=== PATIENT | male | born 1940 | race Caucasian/White ===

== ENCOUNTER 2017-03-12 15:46 | Emergency (ER) | payer OTHER ==
[~2017-03-12] VITALS: Ht 172.7 cm; Wt 95.3 kg
[2017-03-12] MEDS ORDERED: IV NORMAL SALINE 1000ML BAG 1,000 ML IV SCH (15:59)
[2017-03-12] MEDS ORDERED: KETOROLAC TROMETHAMINE 30 MG/ML INJ. IV ONE (16:00)
[2017-03-12] MEDS ORDERED: ONDANSETRON PF 4 MG/2 ML VIAL. IV ONE (16:00)
[2017-03-12] MEDS ORDERED: 0.9 % SODIUM CHLORIDE 10 ML DISP.SYRIN. IV PRN (16:00)
[2017-03-12 16:10] LABS: BASO % 1 % (0-3); BILIRUBIN,URINE NEGATIVE (NEG); EOS % 3 % (0-3); GLUCOSE,URINE NEGATIVE (NEG); HEMATOCRIT 51.4 % (39.0-53.0); HEMOGLOBIN 17.2 g/dL (13.0-17.5); LYMPH # 2.4 x10^3/uL (1.0-4.8); LYMPH % 34 % (24-48); MEAN CORPUSCULAR HEMOGLOBIN 31 pg (25-35); MEAN CORPUSCULAR HGB CONC 34 g/dL (31-37); MEAN CORPUSCULAR VOLUME 91 fL (79-100); MONO % 10 % (0-9); NEUT % 53 % (31-73); NITRITE,URINE NEGATIVE (NEG); PLATELET COUNT 177 x10^3/uL (140-400); PROTEIN,URINE NEGATIVE (NEG-TRACE); RED BLOOD COUNT 5.64 x10^6/uL (4.30-5.70); RED CELL DISTRIBUTION WIDTH 13.5 % (11.5-14.5); UROBILINOGEN,URINE 0.2 mg/dL (0.2 mg/dL); WHITE BLOOD COUNT 7.1 x10^3/uL (4.0-11.0)
--- NOTE | 2017-03-12 16:15 | PHYS DOC ---
Past Medical History Past Medical History: CAD, Hypertension, Kidney Stone Past Surgical History: Knee Replacement, TURP Additional Past Surgical Histo: umbilical hernia surgery Adult General Chief Complaint Chief Complaint: FLANK PAIN HPI HPI Patient is a pleasant 76-year-old male with a history of kidney stones, hypertension, prior umbilical hernia, prior paroxysmal age of regulation presents with flank pain that began 3 days ago. Originally he thought he pulled a muscle while at work but the pain as got progressively worse over the right flank with radiation to the right lower quadrant. Described as achy and throbbing without clear resolution. Patient describes waves of pain with nausea without vomiting. Patient denies any direct trauma denies any reproducible pain certain movements. Denies UTI symptoms hematuria or inability to urinate. Patient does describe history of kidney sounds much like this in the past. The reason he came in today's cousin nausea without vomiting Jarrod progressively worse. He denies no chest pain shortness of breath, recent URI symptoms, recent rashes on her skin, fevers, chills, diarrhea or other symptoms. He is allergic to aspirin and doesn't like to use Motrin secondary to his irritation of his stomach. Pain presently is an 8 of 10 Review of Systems Review of Systems Constitutional: Denies fever or chills [] Eyes: Denies change in visual acuity, redness, or eye pain [] HENT: Denies nasal congestion or sore throat [] Respiratory: Denies cough or shortness of breath [] Cardiovascular: No additional information not addressed in HPI [] GI: Abdominal pain, nausea without diarrhea : Denies dysuria or hematuria [] Musculoskeletal back pain chronically [] Integument: Denies rash or skin lesions [] Neurologic: Denies headache, focal weakness or sensory changes [] Endocrine: Denies polyuria or polydipsia [] Current Medications Current Medications Current Medications Medications (Trade) Dose Ordered Sig/Chaparrita Start Time Stop Time Status Last Admin Dose Admin Fentanyl Citrate (Fentanyl 2ml Vial) 50 mcg PRN Q15MIN PRN 03/12/17 16:00 03/13/17 15:59 03/12/17 16:59 50 MCG Ketorolac Tromethamine (Toradol) 30 mg 1X ONCE 03/12/17 16:00 03/12/17 16:05 DC 03/12/17 16:18 30 MG Ondansetron HCl (Zofran) 4 mg 1X ONCE 03/12/17 16:00 03/12/17 16:05 DC 03/12/17 16:15 4 MG Sodium Chloride (Normal Saline Flush) 10 ml QSHIFT PRN 03/12/17 16:00 Allergies Allergies Allergies Coded Allergies Type Severity Reaction Last Updated Verified metaproterenol Allergy Unknown ? 03/12/17 Yes aspirin Adverse Reaction Unknown abd pain 03/12/17 Yes Physical Exam Physical Exam Constitutional: Well developed, well nourished, patient is mildly diaphoretic and uncomfortable nontoxic in appearance HENT: Normocephalic, atraumatic, bilateral external ears normal, oropharynx moist, Eyes: PERRLA, EOMI, conjunctiva normal, no discharge. [] Neck: Normal range of motion, no tenderness, supple, no stridor. [] Cardiovascular:Heart rate regular rhythm, no murmur [] Lungs & Thorax: Bilateral breath sounds clear to auscultation [] Abdomen: Bowel sounds normal, soft, no tenderness, no masses, no pulsatile masses. [] Skin: Warm, dry, no erythema, no rash. [] Back: No tenderness, no CVA tenderness. [] Extremities: No tenderness, no cyanosis, no clubbing, ROM intact, no edema. [] Neurologic: Alert and oriented X 3, normal motor function, normal sensory function, no focal deficits noted. [] Psychologic: Affect normal, judgement normal, mood normal. [] Current Patient Data Vital Signs Vital Signs Date Time Temp Pulse Resp B/P (MAP) Pulse Ox O2 Delivery O2 Flow Rate FiO2 03/12/17 16:59 14 96 Room Air 03/12/17 16:42 88 175/89 (117) 03/12/17 15:55 97.9 97.9 Lab Values Laboratory Tests Test 03/12/17 16:00 White Blood Count 7.1 x10^3/uL (4.0-11.0) Red Blood Count 5.64 x10^6/uL (4.30-5.70) Hemoglobin 17.2 g/dL (13.0-17.5) Hematocrit 51.4 % (39.0-53.0) Mean Corpuscular Volume 91 fL (79-100) Mean Corpuscular Hemoglobin 31 pg (25-35) Mean Corpuscular Hemoglobin Concent 34 g/dL (31-37) Red Cell Distribution Width 13.5 % (11.5-14.5) Platelet Count 177 x10^3/uL (140-400) Neutrophils (%) (Auto) 53 % (31-73) Lymphocytes (%) (Auto) 34 % (24-48) Monocytes (%) (Auto) 10 % (0-9) H Eosinophils (%) (Auto) 3 % (0-3) Basophils (%) (Auto) 1 % (0-3) Neutrophils # (Auto) 3.8 x10^3uL (1.8-7.7) Lymphocytes # (Auto) 2.4 x10^3/uL (1.0-4.8) Monocytes # (Auto) 0.7 x10^3/uL (0.0-1.1) Eosinophils # (Auto) 0.2 x10^3/uL (0.0-0.7) Basophils # (Auto) 0.0 x10^3/uL (0.0-0.2) Urine Collection Type Unknown Urine Color Yellow Urine Clarity Clear Urine pH 6.0 Urine Specific Arab 1.015 Urine Protein Negative mg/dL (NEG-TRACE) Urine Glucose (UA) Negative mg/dL (NEG) Urine Ketones (Stick) Negative mg/dL (NEG) Urine Blood Negative (NEG) Urine Nitrite Negative (NEG) Urine Bilirubin Negative (NEG) Urine Urobilinogen Dipstick 0.2 mg/dL (0.2 mg/dL) Urine Leukocyte Esterase Negative (NEG) Urine RBC 0 /HPF (0-2) Urine WBC Occ /HPF (0-4) Urine Squamous Epithelial Cells Few /LPF Urine Bacteria 0 /HPF (0-FEW) Urine Mucus Slight /LPF Sodium Level 137 mmol/L (136-145) Potassium Level 4.1 mmol/L (3.5-5.1) Chloride Level 101 mmol/L (98-107) Carbon Dioxide Level 26 mmol/L (21-32) Anion Gap 10 (6-14) Blood Urea Nitrogen 17 mg/dL (8-26) Creatinine 1.1 mg/dL (0.7-1.3) Estimated GFR (Cockcroft-Gault) 65.4 BUN/Creatinine Ratio 15 (6-20) Glucose Level 106 mg/dL (70-99) H Calcium Level 9.3 mg/dL (8.5-10.1) Total Bilirubin 0.6 mg/dL (0.2-1.0) Aspartate Amino Transferase (AST) 25 U/L (15-37) Alanine Aminotransferase (ALT) 26 U/L (16-63) Alkaline Phosphatase 61 U/L (46-116) Creatine Kinase 153 U/L (39-308) Creatine Kinase MB (Mass) 2.9 ng/mL (0.0-3.6) Creatine Kinase MB Relative Index 1.9 % (0-4) Troponin I Quantitative < 0.017 ng/mL (0.000-0.055) Total Protein 7.4 g/dL (6.4-8.2) Albumin 4.0 g/dL (3.4-5.0) Albumin/Globulin Ratio 1.2 (1.0-1.7) Lipase 151 U/L (73-393) Laboratory Tests 03/12/17 16:00 Laboratory Tests 03/12/17 16:00 EKG EKG [] EKG timed 1614 date 03/12/[address] Felder heart rate 67 DC increased to 206 deficits. Mild first-degree AV block QRS is normal with QTC is within normal limits. No ST segment T-wave changes consistent with acute coronary ischemia. Radiology/Procedures Radiology/Procedures [] Course & Med Decision Making Course & Med Decision Making Pertinent Labs and Imaging studies reviewed. (See chart for details) U nursing notes, vital signs as well as laboratory work. Urinalysis is clear with exception. White blood cell count red blood cells noted no bacteria. Kidney functions normal. BUNs 17 and creatinine 1.1 Reassessment pain has improved from 9 of 10-6. With a single dose of fentanyl this patient's nausea is also improved. []: 1940 LOCATION: ER AGE: 76 SEX: M EXAM STATUS: REG ER ORD. PHYSICIAN: SHABANA FELDER MD REASON: right flank pain PROCEDURE: CT ABDOMEN PELVIS WO CONTRAST Indication: Right flank pain for 4 days. Technique: Axial images and coronal and sagittal reformatted images are provided. No comparison is available. One or more of the following individualized dose reduction techniques were utilized for this examination: 1. Automated exposure control 2. Adjustment of the mA and/or kV according to patient size 3. Use of iterative reconstruction technique Findings: There is atelectasis or scarring in the lung bases. There is no pleural effusion. Heart is not enlarged. Coronary artery calcifications are noted. Solid organ evaluation is limited without contrast. There is fatty infiltration of the liver. Gallbladder is unremarkable. Spleen is not enlarged. Pancreas and adrenals are unremarkable. Nonobstructing renal calculi bilaterally are noted, one stone on the right measuring 3 mm and several stones on the left up to 4 mm in size. Probable cysts are noted bilaterally, largest lower pole right kidney measures 5 cm. There is no obstructing renal calculus. There is atheromatous disease in the abdominal aorta without aneurysm. Lack of IV or oral contrast limits evaluation of bowel. There is a small hiatal hernia. There is no bowel obstruction or mural thickening. There is probably a small duodenal diverticulum. There are a few diverticula in the colon without findings of diverticulitis. Normal appendix is visualized. Bladder is without calculus. Prostate calcifications are off midline. There is no free pelvic fluid or pelvic adenopathy. There are degenerative changes in the spine. Impression: Nonobstructing renal calculi bilaterally. No obstructing calculus. DICTATED and SIGNED BY: BRYANT YORK MD DATE: 03/12/17 8184 CC: SHABANA FELDER MD; RICH RITCHIE Discussed the results of the CT scan laboratory work and care with the patient and his . Differential diagnosis includes diverticulitis, small bowel section, cholecystitis, cholelithiasis, appendicitis, ruptured AAA aneurysm, kidney stone, UTI, pyonephritis, compression fracture lumbar spine, rib fracture , chest wall contusion, herpes zoster,. His pain is improved with IV medications fluids and antiemetics. Discussed differential diagnosis and follow-up instructions with his . This pointed no questions. Impression: Abdominal pain of unclear etiology, nausea without vomiting. Disposition: Oral analgesics, antiemetics, PCP follow-up in 12-24 hours repeat abdominal exam. Discussed with family appendix is a continuum of disease and need for follow-up. Dragon Disclaimer Dragon Disclaimer This electronic medical record was generated, in whole or in part, using a voice recognition dictation system. Departure Departure Impression: Primary Impression: Nausea Additional Impression: Abdominal pain Disposition: HOME, SELF-CARE Condition: GOOD Patient Instructions: Abdominal Pain (Nonspecific), Nausea, Adult Additional Instructions: This follow-up with her primary care doctor in the next 12-24 hours for repeat, exam to ensure that appendicitis is not developing. There is no evidence of kidney stones but cautious symptoms at this time. There are some kidney stones inside her kidney the past causing symptoms cell provide you symptomatically treatment until you are seen by her provider. Please return for any new or increased symptoms, vomiting with blood in your emesis or blood in your stool. I would also advise you to follow up with her regular doctor for routine evaluations. Problem Qualifiers SHABANA FELDER MD March 12, 2017 16:15
[2017-03-12] MEDS: fentaNYL PF VIAL 100 MCG/2 ML VIAL IV PRN ×2 (16:17→16:59)
[2017-03-12 16:20] LABS: CALCIUM 9.3 mg/dL (8.5-10.1); CREATININE 1.1 mg/dL (0.7-1.3); GFR 65.4; POTASSIUM 4.1 mmol/L (3.5-5.1)
[2017-03-12 16:26] LABS: ALBUMIN/GLOBULIN RATIO 1.2 (1.0-1.7); TOTAL BILIRUBIN 0.6 mg/dL (0.2-1.0); TOTAL PROTEIN 7.4 g/dL (6.4-8.2)
[2017-03-12 16:27] LABS: BACTERIA,URINE 0 /HPF (0-FEW); RBC,URINE 0 /HPF (0-2); SQUAMOUS EPITHELIAL CELL,UR FEW /LPF; WBC,URINE OCC /HPF (0-4)
[2017-03-12 16:34] LABS: CKMB MASS 2.9 ng/mL (0.0-3.6)
--- NOTE | 2017-03-12 16:52 | RAD ---
Indication: Right flank pain for 4 days. Technique: Axial images and coronal and sagittal reformatted images are provided. No comparison is available. One or more of the following individualized dose reduction techniques were utilized for this examination: 1. Automated exposure control 2. Adjustment of the mA and/or kV according to patient size 3. Use of iterative reconstruction technique Findings: There is atelectasis or scarring in the lung bases. There is no pleural effusion. Heart is not enlarged. Coronary artery calcifications are noted. Solid organ evaluation is limited without contrast. There is fatty infiltration of the liver. Gallbladder is unremarkable. Spleen is not enlarged. Pancreas and adrenals are unremarkable. Nonobstructing renal calculi bilaterally are noted, one stone on the right measuring 3 mm and several stones on the left up to 4 mm in size. Probable cysts are noted bilaterally, largest lower pole right kidney measures 5 cm. There is no obstructing renal calculus. There is atheromatous disease in the abdominal aorta without aneurysm. Lack of IV or oral contrast limits evaluation of bowel. There is a small hiatal hernia. There is no bowel obstruction or mural thickening. There is probably a small duodenal diverticulum. There are a few diverticula in the colon without findings of diverticulitis. Normal appendix is visualized. Bladder is without calculus. Prostate calcifications are off midline. There is no free pelvic fluid or pelvic adenopathy. There are degenerative changes in the spine. Impression: Nonobstructing renal calculi bilaterally. No obstructing calculus.
[2017-03-12] MEDS ORDERED: ONDA4TAB10 PO (17:39)
[2017-03-12] MEDS ORDERED: HYDR-2666 PO (17:39)
[2017-03-12 17:49] VITALS: BP 140/74
--- NOTE | 2017-03-13 12:01 | EKG ---
[facility] [address] [place] [address] Test Date: 2017-03-12 Test Time: 16:14:55 Pat Name: VELMA HARRISON Department: Room: Gender: M Stock Controller: : 1940 Requested By: SHABANA FELDER Order Number: [id number] Reading MD: Lolly Rubin Measurements Intervals [place] Rate: 67 P: 42 GA: 206 QRS: -18 QRSD: 92 T: 48 QT: 378 QTc: 402 Interpretive Statements SINUS RHYTHM LEFTWARD AXIS OTHERWISE NORMAL ECG RI6.01 Unconfirmed report No previous ECG available for comparison Electronically Signed On 03-14-2017 21:32:31 CDT by Lolly Rubin
== END 2017-03-12 17:51 | disposition home or self-care (01) ==
LOC: ER 16:50
DX: R11.0 Nausea (principal); R10.9 Unspecified abdominal pain; R61 Generalized hyperhidrosis; I10 Essential (primary) hypertension; I25.10 Atherosclerotic heart disease of native coronary artery without angina pectoris; Z88.6 Allergy status to analgesic agent; Z88.8 Allergy status to other drugs, medicaments and biological substances; Z87.442 Personal history of urinary calculi
CPT/HCPCS: 36415; 74176; 80053; 81001; 82553; 83690; 84484; 85027; 93005; 96361; 96374; 96375; 96376; 99285; J1885; J2405; J3010; J7030

== ENCOUNTER → 2020-04-20 | Outpatient (CLI) | payer OTHER ==
[~2020-04-20] MED LIST: HYDR-2761 PO; ONDA4TAB10 PO
--- NOTE | 2020-04-20 14:18 | CARD ---
MR#: [id number] Date of Study: 04/20/2020 Ordering Physician: LINDA ANDERSON, Referring Physician: LINDA ANDERSON, Tech: APPROVED REPORT EXAM: Two-dimensional and M-mode echocardiogram with Doppler and color Doppler. Other Information Quality : Good INDICATION Hypertension/HCVD 2D DIMENSIONS RVDd3.1 (2.9-3.5cm)Left Atrium(2D)3.3 (1.6-4.0cm) IVSd0.9 (0.7-1.1cm)Aortic Root(2D)2.9 (2.0-3.7cm) LVDd4.6 (3.9-5.9cm)LVOT Diameter2.2 (1.8-2.4cm) PWd0.9 (0.7-1.1cm)LVDs3.3 (2.5-4.0cm) FS (%) 28.6 %SV54.2 ml LVEF(%)55.2 (>50%) Aortic Valve AoV Peak Kurtis.142.2cm/sAoV VTI24.3cm AO Peak GR.8.1mmHgLVOT Peak Kurtis.118.8cm/s AO Mean GR.4mmHgAVA (VMAX)3.12cm2 CARRIE (VTI)3.60cm2 Mitral Valve MV E Pbbqrrhp317.4cm/sMV DECEL [id number] MV A Gwlaiwzd91.4cm/sE/A Ratio1.1 Tricuspid Valve TR P. Jbqfvxkv265xv/sRAP GBNWLBHM0wyRz TR Peak Gr.84nfXwNUJQ95txMe Pulmonary Vein S1 Jjuzhqvn57.2cm/sD2 Ilmjarfr20.7cm/s LEFT VENTRICLE The left ventricle is normal size. There is mild concentric left ventricular hypertrophy. The left ve ntricular systolic function is normal. The Ejection Fraction is 55-60%. There is normal LV segmental wall motion. RIGHT VENTRICLE The right ventricle is normal size. The right ventricular systolic function is normal. ATRIA The left atrium size is normal. The right atrium size is normal. The interatrial septum is intact wit h no evidence for an atrial septal defect or patent foramen ovale as noted on 2-D or Doppler imaging. AORTIC VALVE The aortic valve is calcified but opens well. Doppler and Color Flow revealed no significant aortic r egurgitation. There is no significant aortic valvular stenosis. MITRAL VALVE The mitral valve is calcified but opens well. Mitral annular calcification is mild. There is no evide nce of mitral valve prolapse. There is no mitral valve stenosis. Doppler and Color-flow revealed trac e mitral regurgitation. TRICUSPID VALVE The tricuspid valve is normal in structure and function. Doppler and Color Flow revealed mild tricusp id regurgitation. The PA pressure was estimated at 56 mmHg. There is no tricuspid valve stenosis. PULMONIC VALVE The pulmonic valve is not well visualized. Doppler and Color Flow revealed no pulmonic valvular regur gitation. There is no pulmonic valvular stenosis. GREAT VESSELS The aortic root is normal in size. The ascending aorta is not well seen. The IVC is normal in size an d collapses >50% with inspiration. PERICARDIAL EFFUSION There is no evidence of significant pericardial effusion. Critical Notification Critical Value: No <Conclusion> The left ventricle is normal size. The left ventricular systolic function is normal. The Ejection Fraction is 55-60%. There is normal LV segmental wall motion. There is mild concentric left ventricular hypertrophy. Doppler and Color Flow revealed no significant aortic regurgitation. There is no significant aortic valvular stenosis. Doppler and Color-flow revealed trace mitral regurgitation. Doppler and Color Flow revealed mild tricuspid regurgitation. The PA pressure was estimated at 56 mmHg. Signed by : Juvenal Ye MD Electronically Approved : 04/20/2020 14:18:29
== END | disposition home or self-care (01) ==
LOC: ECHO 10:12
PROVIDERS: ATTEND Internal Medicine Cardiovascular Disease
DX: I08.3 Combined rheumatic disorders of mitral, aortic and tricuspid valves (principal); I10 Essential (primary) hypertension
CPT/HCPCS: 93306

== ENCOUNTER → 2020-04-29 | Outpatient (CLI) | payer OTHER ==
[~2020-04-29] MED LIST changes: +REGADENOSON 0.4 MG/5 ML DISP.SYRIN. IV ONE
--- NOTE | 2020-04-29 17:53 | RAD ---
MR#: [id number] Date of Study: 04/29/2020 Ordering Physician: LINDA MONGE, Referring Physician: KARI MCNEAL Tech: RT Sebastián (R) (N) APPROVED REPORT Test Type: Pharmacological Stress Nurse/Tech: Minevra Vidal RN Test Indications: CAD, Pre-op for hip surgery Cardiac History: Hypertension, High cholesterol, NE with 1 stent Medications: See Electronic Medical Record Medical History: See Electronic Medical Record Resting ECG: SB Resting Heart Rate: 53 bpm Resting Blood Pressure: 132/66mmHg Pretest Chest Pain: No chest pain Nurse/Tech Notes S1S2, Lungs CTA Consent: The procedure was explained to the patient in lay terms. Informed consent was witnessed. Neymar eout was entered into [employer]. History and Stress Test performed by RT Juancho (R) (N) Pharm. Details Pharmacologic stress testing was performed using 0.4mg per 5ml of regadenoson given intravenously ove r 7-10 seconds. Stress Symptoms Dyspnea, Chest pain 3/10. Resolved by the end of stress test. POST EXERCISE Reason for Termination: Infusion complete Max HR: 120 bpm Max Blood Pressure: 154/73mmHg Blood Pressure response to exercise: Normal blood pressure response during stress. Heart Rate response to exercise: WNL Chest Pain: Yes. 3/10 resolved by end of test. Arrhythmia: No. ST Change: No. INTERPRETATION Stress EKG Conclusion: No evidence of stress induced EKG changes. Imaging Protocol IMAGE PROTOCOL: Rest Tc-99m/stress Tc-99m 1 day Rest: Stress: Viability: Radiopharm.Tc99m MlxyoxwbbYr79c Sestamibi Kjcm58nCp 30.6mCi Duration 20min. 20min. Img Date 04/29/2020 04/29/2020 Inj-Img Cqnz84aqf. 60min. Rest Admin Site:IV - Left AntecubitalAdministrator:RT Sebastián (R)(N) Stress Admin Site: IV - Left AntecubitalAdministrator: RT Lety Dawkins)(N) STRESS DATA End Diast. Vol.79.0mlAv. Heart Rate69.0bpm End Syst. Vol.18.0mlCO Index BSA0.0L/min Myocardial Tknt656.0gEject. Kdmtoibd39.0% Stress Rates Pk. Fill Rate3.40EDV/secLVtime Pk. Fill 244.95msec Pk. Empty Rate4.50ESV/secLVtime Pk. Zoihh047.42msec 1/3 Pk. Fill1.19EDV/sec Stress Scores Regional WT0.00Summed WT0.00 Regional WM0.00Summed WM0.00 The rest and stress images show normal perfusion, normal contraction and thickening. LV Perf. Quant 17 Seg. SSS0.00 17 Seg. SRS0.00 17 Seg. SDS0.00 Stress Defect Extent (% LAD)0.00Rest Defect Extent (% LAD)0.00Rev. Defect Extent (% LAD)0.00 Stress Defect Extent (% LCX) 0.00Rest Defect Extent (% LCX)0.00Rev. Defect Extent (% LCX)0.00 Stress Defect Extent (% RCA)0.00Rest Defect Extent (% RCA)0.00Rev. Defect Extent (% RCA)0.00 Stress Defect Extent (% MIRI)0.00Rest Defect Extent (% MIRI)0.00Rev. Defect Extent (% MIRI)0.00 Other Information Quality:Good Risk Assessment: Low Risk Conclusion 1. No evidence of EKG changes with stress testing. 2. Normal perfusion at stress/rest. 3. Low risk study. 4. EF > 60%. Signed by : Linda Monge, Electronically Approved : 04/29/2020 17:53:00
== END | disposition home or self-care (01) ==
LOC: NM 08:13
PROVIDERS: ATTEND Internal Medicine Cardiovascular Disease
DX: I25.10 Atherosclerotic heart disease of native coronary artery without angina pectoris (principal); I10 Essential (primary) hypertension; I25.2 Old myocardial infarction; E78.00 Pure hypercholesterolemia, unspecified
CPT/HCPCS: 78452; 93017; A9500; J2785